=== PATIENT | male | born 1960 | race Caucasian/White ===

== ENCOUNTER 2024-02-22 02:22 | Emergency (ER) | payer BC, SELFPAY ==
[2024-02-22 02:25] VITALS: BP 176/93
[2024-02-22 02:33] VITALS: BMI 32.4
--- NOTE | 2024-02-22 02:52 | ED.GENMED ---
History of Present Illness
<ANGIE Johnson - Last Filed: 02/22/24 03:09>
General
Chief Complaint: Breathing Problem
Source: patient
Exam Limitations: none
Time Seen by Provider: 02/22/24 02:37
Nursing documentation reviewed up to this point in time: agreed with
History of Present Illness
History of Present Illness:
Pt is a 63 y/o M with pmhx of thyroidectomy and HOLEP presents with complaints of SOB that woke up up at 1:15 AM. He reports feeling congested and was unable to get a full breath. He has an associated cough. He stated that he has a pulse oximeter at
home and it was unable to chicken picker his vitals so he presented to the ED for further evaluation. The pt noted that he is concerned that he has pneumonia because he had an infection in the past. Upon interview, the pt reported that his symptoms feel
significantly better. The pt also noted that he has had cloudy urine only in the morning for the past week. He reported that he has had recurrent UTIs since he had his HOLEP performed 2.5 years ago, the last being in September, and is worried that he may
have another infection. Denies chest pain, fever, chills, nausea, vomiting, lightheadedness, dizziness, abdominal pain, extremity pain. Denies sick contact.
Past History
<ANGIE Johnson - Last Filed: 02/22/24 03:09>
Past History
ED Past Medical History: Hypothyroidism
ED Past Surgical History: Urological (HOLEP) and Other (thyroidectomy)
Social History
Tobacco: Non-smoker
Alcohol: Occasional
Drug: None
Review of Systems
<ANGIE Johnson - Last Filed: 02/22/24 03:09>
Review of Systems
Allergies reviewed?: Yes
Constitutional: Reports no symptoms
EENT: Reports no symptoms
Respiratory: Reports cough and trouble breathing
Cardiac: Reports no symptoms
ABD/GI: Reports no symptoms
: Reports other (cloudy urine)
Musculoskeletal: Reports no symptoms
Skin: Reports no symptoms
Neurological: Reports no symptoms
Endocrine: Reports no symptoms
Hematologic/Lymphatic: Reports no symptoms
Psychiatric: Reports no symptoms
Phy Exam
<ANGIE Johnson - Last Filed: 02/22/24 03:09>
General Physical Exam
General Presentation: well appearing and no apparent distress
General age: appears stated age
General Skin: warm and dry
General Habitus: normal
General Mental: alert
General Hydration: appears well hydrated
ENT Exam
ENT Exam: EOMI and neck supple
Eye Exam
Eye Exam: PERRL, EOMI, cornea clear and conjunctiva normal
Cardiovascular Exam
Cardiovascular Exam: regular rate/rhythm, no edema, no gallop, no JVD, no murmur and normal peripheral pulses
Pulmonary Exam
Pulmonary Exam: lungs clear, no respiratory distress, no rales, chest non tender, no crackles, no rhonchi, no stridor, no wheezing and no cough
Respirations: controlled ventilations
Gastrointestinal Exam
Gastrointestinal Exam: normal bowel sounds, non tender, soft and non distended
Neurological Exam
Neurological Exam: alert, oriented x3, CN II-XII intact, no motor deficits, normal reflexs, no sensory deficits and speech normal
Musculoskeletal Exam
Musculoskeletal Exam: full ROM, no edema and neuro vasc intact
Skin Exam
Skin Exam: normal color, warm/dry, no rash and no petechia
Psychiatric Exam
Psychiatric Exam: normal mood/affect
Scores
<Marsha Barkley DO - Last Filed: 02/22/24 04:32>
Heart Failure Risk
Heart Failure Risk Score: Not Applicable
Course
<ANGIE Johnson - Last Filed: 02/22/24 03:09>
Orders/Labs/Results
Orders:
Orders
02/22/24 02:23
ECG [Electrocardiogram (*1)] Urgent
Reason for Study: Shortness of Breath
EKG- Treatment ONCE
02/22/24 03:45
Encourage PO Hydration-Treatme ONCE
02/22/24 04:15
Urinalysis Reflex To Culture Urgent
Date Specimen was Collected: 02/22/24
Time Specimen was Collected: 03:59
Vital Signs
Initial and Last Documented VS:
Initial Vital Signs
Temp Pulse Resp BP Pulse Ox
98.1 F 69 15 176/93 98
02/22/24 02:25 02/22/24 02:25 02/22/24 02:25 02/22/24 02:25 02/22/24 02:25
Last Documented Vital Signs
Temp Pulse Resp BP Pulse Ox
98.1 F 66 17 150/83 97
02/22/24 02:25 02/22/24 04:16 02/22/24 04:16 02/22/24 04:16 02/22/24 04:16
<Marsha Barkley, DO - Last Filed: 02/22/24 04:32>
Orders/Labs/Results
Orders:
Orders
02/22/24 02:23
ECG [Electrocardiogram (*1)] Urgent
Reason for Study: Shortness of Breath
EKG- Treatment ONCE
02/22/24 03:45
Encourage PO Hydration-Treatme ONCE
02/22/24 04:15
Urinalysis Reflex To Culture Urgent
Date Specimen was Collected: 02/22/24
Time Specimen was Collected: 03:59
Vital Signs
Initial and Last Documented VS:
Initial Vital Signs
Temp Pulse Resp BP Pulse Ox
98.1 F 69 15 176/93 98
02/22/24 02:25 02/22/24 02:25 02/22/24 02:25 02/22/24 02:25 02/22/24 02:25
Last Documented Vital Signs
Temp Pulse Resp BP Pulse Ox
98.1 F 66 17 150/83 97
02/22/24 02:25 02/22/24 04:16 02/22/24 04:16 02/22/24 04:16 02/22/24 04:16
<ANGIE Johnson - Last Filed: 02/22/24 03:09>
*Critical Care Note
Total Time (30-74mins, 75-104mins- exclusive of procedures): Not Applicable
<Marsha Barkley DO - Last Filed: 02/22/24 04:32>
*Pulse Oximetry
Patient hypoxic: no
*EKG
Interpreted by ED Provider?: Yes
Interpretation: normal
Comparison EKG: no comparison EKG present
Rate: normal
Rhythm: sinus
Trout: normal axis
Interval: normal interval
QRS Pattern: normal QRS
Ischemia: no ischemia
*Bologna Lacer Interpretation
Rate: normal
Interpretation: normal
Rhythm: sinus
ED Attending Note
<ANGIE Johnson - Last Filed: 02/22/24 03:09>
-
Portions of this chart may have been created with voice recognition software.� Occasional wrong word or��sound alike� substitutions may have occurred due to the inherent limitations of voice recognition software.
<Marsha Barkley DO - Last Filed: 02/22/24 04:32>
ED Attending Note
Patient seen and examined by attending physician: Yes
I performed the substantive portion of visit, reviewed & personally made and approve the management plan that is documented in note by myself or KRISTEN.: Yes
ED Attending Note:
This is a 63-year-old gentleman with history of hypothyroidism, maintained on levothyroxine. He has history of BPH, previous BPH surgery, UTIs with last UTI September of this year. He also notes history of significant seasonal allergies and utilizes
natural supplements as needed for his seasonal allergies.
Tonight he awoke abruptly with a harsh, dry cough associated with some shortness of breath feeling that he was developing a cold or pneumonia versus concern for possible allergic reaction. He states he checked his pulse ox at home and this was
normal at 98. He denies associated sore throat, denies swelling of his face or throat, denies a sense of lump in his throat, no hoarseness nor stridor. No chest pain, no palpitations, no dizziness nor lightheadedness. No itching nor rash, no
abdominal pain, no nausea nor diarrhea. He was concern for potential allergic reaction and thus drove himself to the ED. Symptoms resolved en route to the hospital. He has had no further cough, no shortness of breath and currently feels well and
asymptomatic.
No history of similar episodes in the past.
GENERAL: Alert , in no apparent distress. 63-year-old gentleman appears his stated age, awake and alert, pleasant, appears in no acute distress.
EYE: anicteric
NECK: Supple, nontender, no meningismus, no significant adenopathy.
ENT: posterior pharynx is clear, oral mucosa is moist. TM clear b/l, nares patent. There is no angioedema, no erythema. No postnasal drip. Speech is clear.
CARDIAC: Regular rate and rhythm. no murmur.
LUNGS: Clear breath sounds bilaterally, no acute respiratory distress, no wheezes/rales/rhonchi. No cough nor stridor. No respiratory distress.
ABDOMEN: Soft, nondistended, without focal tenderness, normoactive BS.
NEUROLOGICAL: Alert and oriented x3, no focal neuro deficits. Gait is luu and steady.
SKIN: Warm and dry, normal color, skin intact. No rash.
MUSCULOSKELETAL: No C/C/E. peripheral pulses are full and equal b/l. No palpable tenderness.
PSYCH: Normal and appropriate interaction.
At this point unclear as to cause for abrupt cough waking him from sleep. This may have been an element of postnasal drip, perhaps acid reflux versus onset of URI. Nothing on exam to suggest acute allergic reaction.
He remains asymptomatic since arrival to the ED. Lungs are clear to auscultation.
No history of CAD nor cardiomyopathy and no risk factors for such. EKG is unremarkable showing normal sinus rhythm, normal axis, normal intervals, no acute ST-T wave abnormalities.
He does have a history of UTIs, BPH and notes his urine has been somewhat cloudy this week but denies dysuria no urgency nor frequency. Will check urinalysis.
Will continue to observe in the ED for return of symptoms. At this point no indication for laboratory studies nor imaging.
Discharge Plan
Departure
Patient Disposition: Home (Routine Discharge)
Date of Disposition: 02/22/24
Time of Disposition: 04:30
Patient with high blood pressure during this ER visit?: Yes
Condition: Good
Discharge Problem:
Acute cough, transient dyspnea
Instructions: Shortness of Breath, Adult ED, BLOOD PRESSURE
Prescriptions:
No Action
levothyroxine [Levoxyl] 175 mcg Tablet
175 mcg PO DAILY
tadalafil 5 mg Tablet
5 mg PO PRN PRN (Reason: 'improved circulation')
Patient Comments:
pt says he take this up to 4xs per week for improved circulation
Referrals:
Carmen Harrison DO [Family Provider] - Call in 1-3 days for appt
Interventions
Interventions:
*Risk Screen - Suicide Last Done: 02/22/24 02:25
*General Assessment Last Done: 02/22/24 02:25
*Neglect/Abuse Screening Last Done: 02/22/24 02:25
ED- Fall Risk Assessment Last Done: 02/22/24 02:42
*ED COVID-19 Vaccine History Last Done: 02/22/24 02:30
ED- Cardiac Assessment Last Done: 02/22/24 02:33
ED- Pulmonary Assessment Last Done: 02/22/24 02:42
Discharge Date and Time
Print Language: SAMOAN
[2024-02-22 03:00] VITALS: BP 175/84
[2024-02-22 04:16] VITALS: BP 150/83
[2024-02-22 04:22] LABS: Urine Albumin Negative (Neg - Trace); Urine Bilirubin Negative (Negative); Urine Character Clear (Clear); Urine Glucose Negative (Negative); Urine Ketone Negative (Negative); Urine Leukocyte Negative (Negative); Urine Nitrite Negative (Negative); Urine Occult Blood Negative (Negative); Urine Urobilinogen Negative (Neg - 1+); Urine pH 6.5 (5.0-9.0)
== END 2024-02-22 04:48 | disposition home or self-care (01) ==
LOC: EMR 02:22
PROVIDERS: EMERGENCY PHYSICIAN Emergency Medicine; FAMILY PHYSICIAN Family Medicine
DX: R05.9 Cough, unspecified (principal); R06.00 Dyspnea, unspecified; E03.9 Hypothyroidism, unspecified; N40.0 Benign prostatic hyperplasia without lower urinary tract symptoms; Z79.890 Hormone replacement therapy; Z87.440 Personal history of urinary (tract) infections
CPT/HCPCS: 99282; 81003; 93005